=== PATIENT | female | born 1990 | race Two or more races ===

== ENCOUNTER 2019-02-14 10:50 | Emergency (ER) | payer OTHER ==
[~2019-02-14] VITALS: Ht 162.6 cm; Wt 79.1 kg
[~2019-02-14 10:50] MED LIST: AMOX1TAB9 PO; PRED20TA PO
[2019-02-14 11:30] VITALS: BP 140/75; Ht 162.6 cm; Wt 79.1 kg
[2019-02-14 13:45] VITALS: PULSE 66; RESP 18
== END 2019-02-14 13:46 | disposition home or self-care (01) ==
LOC: E/R 10:50
DX: I89.1 Lymphangitis (principal)
CPT/HCPCS: 80048; 85025; 93971; Z7502